=== PATIENT | female | born 1965 | race Caucasian/White ===

== ENCOUNTER 2020-11-21 23:30 | Inpatient (IN) | payer BC ==
[2020-11-22] MEDS ORDERED: ACETAMINOPHEN 500 MG TAB ONE ×2 (00:40→03:19)
[2020-11-22] MEDS ORDERED: NA CHLORIDE 0.9% 3,000 ML ONE (00:40)
[2020-11-22] MEDS ORDERED: CEFEPIME 1 GM/VIAL ONE (00:40)
[2020-11-22] MEDS ORDERED: VANCOMYCIN 1 GM/VIAL ONE (00:40)
[2020-11-22] MEDS ORDERED: NA CHLORIDE 0.9% 250 ML ONE ×2 (00:41→06:30)
[2020-11-22 00:55] LABS: Absolute Lymphocytes (CBC) 0.1 K/uL (0.7-4.9); Basophils % 0.3 % (0-1.3); Hematocrit 32.8 % (36.0-45.0); Lymphocytes % 2.8 % (15.3-44.8); MPV 7.9 fL (7.6-11.3)
[2020-11-22 00:58] LABS: Protime INR 1.14
[2020-11-22 01:06] LABS: ALT/SGPT 31 U/L (12-78); AST/SGOT 20 U/L (15-37); Albumin 3.4 g/dL (3.4-5.0); Alkaline Phosphatase 84 U/L (45-117); Amylase 38 U/L (25-115); BUN Blood Urea Nitrogen 10 mg/dL (7-18); Bicarbonate 23 mmol/L (21-32); Bilirubin Direct < 0.1 mg/dL (0-0.2); Bilirubin Total 0.2 mg/dL (0.2-1.0); Creatine Phosphokinase 47 U/L (26-192); Glucose Level 129 mg/dL (74-106); Lipase 63 U/L (73-393); Magnesium 1.9 mg/dL (1.8-2.4); NT PRO-BNP 124 pg/mL (<125); Potassium 3.8 mmol/L (3.5-5.1); Protein, Total 7.9 g/dL (6.4-8.2); Sodium Level 136 mmol/L (136-145); Troponin (Emerg Dept Use Only) < 0.02 ng/mL (0.0-0.045)
[2020-11-22] MEDS ORDERED: NA CHLORIDE 0.9% 0 ML ONE (01:12)
[2020-11-22 01:22] LABS: CKMB Creatine Kinase MB < 1.0 ng/mL (1.0-3.6)
[2020-11-22 01:52] LABS: Urine Blood Negative (Negative); Urine Glucose Negative (Negative); Urine Protein Negative (Negative); Urine Specific Gravity 1.025 (1.005-1.030)
[2020-11-22 02:52] LABS: Blood Morphology Comment NOT SEEN (NOT SEEN); Platelet Estimate ADEQ
[2020-11-22 02:55] LABS: Urine Bacteria <20 /HPF (<20); Urine RBC NONE SEEN /HPF (NONE SEEN)
--- NOTE | 2020-11-22 02:58 | EDPHYS ---
Physician Documentation [facility] Name: Jennifer Bustamante Age: 55 yrs Sex: Female : 1965 Arrival Date: 11/21/2020 Time: 23:34 Bed 19 Private MD: ED Physician Braxton Dawson HPI: 11/22 02:53 This 55 yrs old Female presents to ER via Ambulatory with complaints of ma2 Fever, Cough, Congestion. 02:53 Onset: The symptoms/episode began/occurred gradually, 1 day(s) ago. Associated signs ma2 and symptoms: Pertinent negatives: abdominal pain, sinus congestion. Severity of symptoms: At their worst the symptoms were moderate in the emergency department the symptoms are unchanged. The patient has not experienced similar symptoms in the past. Patient has breast cancer, received chemotherapy yesterday, here with cough fever sputum production for 1 day.. Historical: - Allergies: 00:44 No Known Allergies; sj1 - Home Meds: 03:55 losartan 25 mg oral tab 1 tab once daily [Active]; Vitamin D 2000 Oral daily [Active]; sj1 - PMHx: 00:44 Carcinoma of breast; Hypertensive disorder; sj1 - Immunization history:: Adult Immunizations up to date, Client reports receiving the 2nd dose of the Covid vaccine, . - Social history:: Smoking status: Patient denies any tobacco usage or history of. Patient/guardian denies using alcohol, street drugs, The patient lives with family. - Family history:: not pertinent. - Hospitalizations: : No recent hospitalization is reported. ROS: 02:53 Constitutional: Negative for fever, chills, and weight loss. ma2 02:53 All other systems are negative. Exam: 02:53 Constitutional: This is a well developed, well nourished patient who is awake, alert, ma2 and in no acute distress. ENT: Nares patent. No nasal discharge, no septal abnormalities noted. Tympanic membranes are normal and external auditory canals are clear. Oropharynx with no redness, swelling, or masses, exudates, or evidence of obstruction, uvula midline. Mucous membranes moist. Neck: Trachea midline, no thyromegaly or masses palpated, and no cervical lymphadenopathy. Supple, full range of motion without nuchal rigidity, or vertebral point tenderness. No Meningismus. Chest/axilla: Normal chest wall appearance and motion. Nontender with no deformity. No lesions are appreciated. Cardiovascular: Tachycardia , regular rhythm with a normal S1 and S2. No gallops, murmurs, or rubs. Normal PMI, no JVD. No pulse deficits. Respiratory: Lungs have equal breath sounds bilaterally, clear to auscultation and percussion. No rales, rhonchi or wheezes noted. No increased work of breathing, no retractions or nasal flaring. Abdomen/GI: Soft, non-tender, with normal bowel sounds. No distension or tympany. No guarding or rebound. No evidence of tenderness throughout. Back: No spinal tenderness. No costovertebral tenderness. Full range of motion. Skin: Warm, dry with normal turgor. Normal color with no rashes, no lesions, and no evidence of cellulitis. MS/ Extremity: Pulses equal, no cyanosis. Neurovascular intact. Full, normal range of motion. Neuro: Awake and alert, GCS 15, oriented to person, place, time, and situation. Cranial nerves II-XII grossly intact. Motor strength 5/5 in all extremities. Sensory grossly intact. Cerebellar exam normal. Normal gait. Vital Signs: 11/21 23:44 BP 101 / 85; Pulse 133; Resp 21; Pulse Ox 96% ; Weight 124.5 kg; Height 5 ft. 4 in. bs2 (162.56 cm); Pain 0/10; 23:54 Temp 101.3(O); bs2 11/22 00:40 BP 110 / 94 LA Sitting (auto/lg); Pulse 122; Resp 20 S; Pulse Ox 100% on R/A; Pain 0/10;sj1 01:02 Temp 102(O); sj1 02:43 BP 136 / 61 LA Sitting (auto/reg); Pulse 117; Resp 22 S; Temp 102.3(O); Pulse Ox 97% on sj1 R/A; Pain 0/10; 11/21 23:44 Body Mass Index 47.11 (124.50 kg, 162.56 cm) bs2 [place] Coma Score: 00:40 Eye Response: spontaneous(4). Verbal Response: oriented(5). Motor Response: obeys sj1 commands(6). Total: 15. MDM: 11/21 23:52 Patient medically screened. ma2 11/22 02:53 Differential diagnosis: viral Infection, bacterial infection, URI, bronchitis, mn2 pneumonia UTI, gastroenteritis. 02:56 Data reviewed: vital signs, nurses notes. Counseling: I had a detailed discussion with [facility] the patient and/or guardian regarding: the historical points, exam findings, and any diagnostic results supporting the discharge/admit diagnosis, the presence of at least one elevated blood pressure reading (>120/80) during this emergency department visit, the need for further work-up and treatment in the hospital. Response to treatment: the patient's symptoms have markedly improved after treatment. 11/21 23:55 Order name: BMP [facility] 11/21 23:55 Order name: Blood Culture Adult (2) [facility] 11/21 23:55 Order name: CBC with Diff [facility] 11/21 23:55 Order name: CPK [facility] 11/21 23:55 Order name: Ckmb [facility] 11/21 23:55 Order name: Hepatic Function; Complete Time: 02:03 [facility] 11/21 23:55 Order name: Lipase; Complete Time: 02:03 [facility] 11/21 23:55 Order name: Magnesium; Complete Time: 02:03 [facility] 11/21 23:55 Order name: NT PRO-BNP; Complete Time: 02:03 [facility] 11/21 23:55 Order name: PT-INR; Complete Time: 02:03 [facility] 11/21 23:55 Order name: Ptt, Activated; Complete Time: 02:03 [facility] 11/21 23:55 Order name: Troponin (emerg Dept Use Only); Complete Time: 02:03 [facility] 11/21 23:55 Order name: Amylase, Serum; Complete Time: 02:03 [facility] 11/21 23:55 Order name: Lactate; Complete Time: 02:03 [facility] 11/21 23:55 Order name: Procalcitonin; Complete Time: 02:03 [facility] 11/21 23:55 Order name: Urine Microscopic Only [facility] 11/21 23:55 Order name: Flu; Complete Time: 02:30 mn2 11/21 23:55 Order name: Strep; Complete Time: 02:30 mn2 11/21 23:56 Order name: Basic Metabolic Panel; Complete Time: 02:03 EDMS 11/21 23:56 Order name: Blood Culture [facility] 11/21 23:56 Order name: CBC with Automated Diff EDMS 11/21 23:56 Order name: Creatine Phosphokinase; Complete Time: 02:03 EDMS 11/21 23:56 Order name: CKMB Creatine Kinase MB; Complete Time: 02:03 EDMS 11/22 00:43 Order name: SARS-COV-2 RT PCR; Complete Time: 02:03 EDMS 11/22 00:59 Order name: Manual Differential EDMS 11/22 01:51 Order name: Urine Dipstick-Ancillary; Complete Time: 02:03 EDMS 11/21 23:55 Order name: XRAY CXR (1 view) ma2 11/21 23:55 Order name: EKG; Complete Time: 23:56 ma2 11/21 23:55 Order name: Cardiac monitoring; Complete Time: 00:36 ma2 11/21 23:55 Order name: EKG - Nurse/Tech; Complete Time: 00:19 ma2 11/21 23:55 Order name: IV Saline Lock; Complete Time: 00:19 ma2 11/21 23:55 Order name: Labs collected and sent; Complete Time: 00:19 ma2 11/21 23:55 Order name: O2 Per Protocol; Complete Time: 00:19 ma2 11/21 23:55 Order name: O2 Sat Monitoring; Complete Time: 00:19 ma2 11/21 23:55 Order name: IV Saline Lock - Large Bore; Complete Time: 00:18 ma2 11/21 23:55 Order name: Urine Dipstick-Ancillary (obtain specimen); Complete Time: 01:51 ma2 11/21 23:55 Order name: Droplet/Contact Precautions; Complete Time: 00:34 ma2 11/22 02:19 Order name: Throat Culture EDMS Administered Medications: 00:34 Drug: Cefepime 1 grams Route: IVPB; Rate: 200 ml/hr; Infused Over: 30 mins; Site: right sj1 antecubital; 01:27 Follow up: IV Status: Completed infusion sj1 00:37 Not Given (Patient Refused): Acetaminophen 1000 mg PO once sj1 00:37 Drug: NS 0.9% (30 ml/kg) 30 ml/kg Route: IV; Rate: bolus; Site: left antecubital; sj1 00:50 Drug: vancoMYCIN 1 grams Route: IVPB; Infused Over: 2 hrs; Site: left antecubital; sj1 03:11 Follow up: IV Status: Completed infusion sj1 01:02 Drug: NS 0.9% (30 ml/kg) 30 ml/kg Route: IV; Rate: bolus; Site: left antecubital; 1 01:11 Drug: NS 0.9% (30 ml/kg) 30 ml/kg Route: IV; Rate: bolus; Site: right antecubital; sj1 02:55 Drug: Acetaminophen 1000 mg Route: PO; sj1 Disposition Summary: 11/22/20 02:57 Hospitalization Ordered Hospitalization Status: Inpatient Admission ma2 Provider: Braxton Oglesby Location: Telemetry/MedSurg (Inpatient) ma2 Condition: Stable ma2 Problem: new ma2 Symptoms: are unchanged ma2 Bed/Room Type: Standard [facility] Room Assignment: 210(11/22/20 04:25) wg Diagnosis - Severe sepsis without septic shock ma2 - Other pneumonia, unspecified organism ma2 - Tachycardia, unspecified ma2 Forms: - Medication Reconciliation Form ma2 - SBAR form ma2 Critical care time excluding procedures: 02:56 Critical care time: Bedside Care: 25 minutes, Consultation: 10 minutes, Family ma2 Intervention: 5 minutes. Total time: 40 minutes Signatures: Dispatcher [employer] EDMS Braxton Dawson MD MD ma2 Isabel Lawrence RN RN bs2 Karthik Petersen RN Sharlene Low RN RN sj1 Corrections: (The following items were deleted from the chart) 11/21 23:58 23:56 D-Dimer ordered. EDMS EDMS 11/22 00:43 11/21 23:56 CORONAVIRUS+MR.LAB.BRZ ordered. EDMS EDMS 11/22 01:28 11/21 23:55 Accucheck ordered. ma2 1 11/22 04:25 02:57 ma2 wg
--- NOTE | 2020-11-22 02:58 | ER ---
Nurse's Notes [facility] Name: Jennifer Bustamante Age: 55 yrs Sex: Female : 1965 Arrival Date: 11/21/2020 Time: 23:34 Bed 19 Private MD: Diagnosis: Severe sepsis without septic shock;Other pneumonia, unspecified organism;Tachycardia, unspecified Presentation: 11/21 23:44 Chief complaint: Patient states: fever, chemo pt treatment today, congestion, cough. bs2 Coronavirus screen: congestion, cough unrelated to allergies, fever. Ebola Screen: No symptoms or risks identified at this time. Initial Sepsis Screen: Does the patient meet any 2 criteria? HR > 90 bpm. No. Patient's initial sepsis screen is negative. Does the patient have a suspected source of infection? No. Patient's initial sepsis screen is negative. Risk Assessment: Do you want to hurt yourself or someone else? Patient reports no desire to harm self or others. Onset of symptoms was November 21, 2020. 23:44 Method Of Arrival: Ambulatory bs2 23:44 Acuity: MARNIE 2 bb Triage Assessment: 23:53 General: Appears in no apparent distress. uncomfortable, obese, well developed, well bs2 nourished, Behavior is calm, cooperative, appropriate for age. Pain: Denies pain. Respiratory:. Historical: - Allergies: 11/22 00:44 No Known Allergies; sj1 - Home Meds: 03:55 losartan 25 mg oral tab 1 tab once daily [Active]; Vitamin D 2000 Oral daily [Active]; sj1 - PMHx: 00:44 Carcinoma of breast; Hypertensive disorder; sj1 - Immunization history:: Adult Immunizations up to date, Client reports receiving the 2nd dose of the Covid vaccine, . - Social history:: Smoking status: Patient denies any tobacco usage or history of. Patient/guardian denies using alcohol, street drugs, The patient lives with family. - Family history:: not pertinent. - Hospitalizations: : No recent hospitalization is reported. Screenin:40 Abuse screen: Denies threats or abuse. Denies injuries from another. Nutritional sj1 screening: No deficits noted. Tuberculosis screening: No symptoms or risk factors identified. Fall Risk None identified. Assessment: 00:37 General: Appears in no apparent distress. Behavior is calm, cooperative, appropriate sj1 for age, Reports fever for feeling ill for. Pain: Denies pain. Neuro: No deficits noted. Cardiovascular: No deficits noted. tachy 128. Rhythm is sinus tachycardia Chest pain is denied. Respiratory: Reports cough that is productive, Airway is patent Trachea midline Respiratory effort is even, unlabored, Respiratory pattern is regular, symmetrical, Sputum is white. GI: Reports nausea. : No deficits noted. EENT: No deficits noted. Derm: No deficits noted. Musculoskeletal: No deficits noted. 01:26 Reassessment: aware of temp 102. No additional orders given. sj1 Vital Signs: 11/21 23:44 BP 101 / 85; Pulse 133; Resp 21; Pulse Ox 96% ; Weight 124.5 kg; Height 5 ft. 4 in. bs2 (162.56 cm); Pain 0/10; 23:54 Temp 101.3(O); bs2 11/22 00:40 BP 110 / 94 LA Sitting (auto/lg); Pulse 122; Resp 20 S; Pulse Ox 100% on R/A; Pain 0/10;sj1 01:02 Temp 102(O); sj1 02:43 BP 136 / 61 LA Sitting (auto/reg); Pulse 117; Resp 22 S; Temp 102.3(O); Pulse Ox 97% on sj1 R/A; Pain 0/10; 11/21 23:44 Body Mass Index 47.11 (124.50 kg, 162.56 cm) bs2 Vitals: 00:40 Cardiac Rhythm Assessment Regular Sinus tach. sj1 [place] Coma Score: 00:40 Eye Response: spontaneous(4). Verbal Response: oriented(5). Motor Response: obeys sj1 commands(6). Total: 15. ED Course: 11/21 23:34 Patient arrived in ED. ja2 23:48 Triage completed. bs2 23:52 Braxton Dawson MD is Attending Physician. ma2 23:53 Arm band placed on right wrist. bs2 11/22 00:18 Creatine Phosphokinase Sent. sj1 00:18 CKMB Creatine Kinase MB Sent. sj1 00:18 CBC with Automated Diff Sent. sj1 00:18 Blood Culture Sent. sj1 00:18 Basic Metabolic Panel Sent. sj1 00:36 XRAY CXR (1 view) Sent. sj1 00:36 Ckmb Sent. sj1 00:36 CPK Sent. sj1 00:36 CBC with Diff Sent. sj1 00:36 Blood Culture Adult (2) Sent. sj1 00:36 BMP Sent. sj1 00:37 XRAY CXR (1 view) In Process Unspecified. EDMS 00:40 Patient has correct armband on for positive identification. Placed in gown. Bed in low sj1 position. Call light in reach. Side rails up X 1. 00:40 No provider procedures requiring assistance completed. Inserted saline lock: 20 gauge sj1 in right antecubital area, using aseptic technique. Blood collected. 00:43 Inserted saline lock: 20 gauge in left antecubital area, using aseptic technique. Blood sj1 collected. 01:10 Manual Differential Sent. sj1 01:10 SARS-COV-2 RT PCR Sent. sj1 01:10 CBC with Automated Diff Sent. sj1 01:10 Flu Sent. sj1 01:11 RSV Sent. sj1 01:11 Strep Sent. sj1 02:57 Braxton Oglesby MD is Hospitalizing Provider. ma2 Administered Medications: 00:34 Drug: Cefepime 1 grams Route: IVPB; Rate: 200 ml/hr; Infused Over: 30 mins; Site: right sj1 antecubital; 01:27 Follow up: IV Status: Completed infusion sj1 00:37 Not Given (Patient Refused): Acetaminophen 1000 mg PO once sj1 00:37 Drug: NS 0.9% (30 ml/kg) 30 ml/kg Route: IV; Rate: bolus; Site: left antecubital; sj1 00:50 Drug: vancoMYCIN 1 grams Route: IVPB; Infused Over: 2 hrs; Site: left antecubital; sj1 03:11 Follow up: IV Status: Completed infusion sj1 01:02 Drug: NS 0.9% (30 ml/kg) 30 ml/kg Route: IV; Rate: bolus; Site: left antecubital; sj1 01:11 Drug: NS 0.9% (30 ml/kg) 30 ml/kg Route: IV; Rate: bolus; Site: right antecubital; sj1 02:55 Drug: Acetaminophen 1000 mg Route: PO; sj1 Outcome: 02:57 Decision to Hospitalize by Provider. ma2 05:07 Patient left the ED. sj1 Signatures: Dispatcher [employer] EDMS Nadine Kendrick RN RN bb Braxton Dawson MD MD ma2 Isabel Lawrence RN RN bs2 Edie Mcclain Sade, RN RN sj1 Corrections: (The following items were deleted from the chart) 00:43 00:18 CORONAVIRUS+ drawn and sent. [facility] EDWA 02:38 11/21 23:44 Acuity: MARNIE 3 bs2 kate
--- NOTE | 2020-11-22 03:52 | P.HP ---
Certification for Inpatient Patient admitted to: Inpatient With expected LOS: >2 Midnights Patient will require the following post-hospital care: None Practitioner: I am a practitioner with admitting privileges, knowledge of patient current condition, hospital course, and medical plan of care. Services: Services provided to patient in accordance with Admission requirements found in Title 42 Section 412.3 of the Code of Federal Regulations Patient History Date of Service: 11/22/20 Reason for admission: pneumonia History of Present Illness: Ms. Bustamante is a 55 yo F with breast cancer currently receiving chemotherapy at [facility] and HTN who presents with one day of cough productive of clear sputum, congestion, and fever. She called [facility] and they told her to go to the hospital. Denies SOB, wheezing, vomiting, and diarrhea. She has received the covid vaccine. - Past Medical/Surgical History Diabetic: No -: breast cancer -: HTN -: 2 c sections -: tonsillectomy -: cataract surgery -: port placement Psychosocial/ Personal History: - Family History Mother -: Lung disease - Social History Smoking Status: Never smoker Alcohol use: No CD- Drugs: No Caffeine use: Yes Place of Residence: Home Review of Systems General: Fever, Chills, Sweats, Malaise Respiratory: Cough Physical Examination - Physical Exam General: Alert, In no apparent distress HEENT: Atraumatic, PERRLA, Mucous membr. moist/pink, EOMI, Sclerae nonicteric Neck: Supple, 2+ carotid pulse no bruit, No LAD, Without JVD or thyroid abnormality Respiratory: Normal air movement, Rhonchi/gurgles Cardiovascular: Regular rate/rhythm, Normal S1 S2 Gastrointestinal: Normal bowel sounds, No tenderness Musculoskeletal: No tenderness Integumentary: No rashes Neurological: Normal speech, Normal strength at 5/5 x4 extr, Normal tone, Normal affect Lymphatics: No axilla or inguinal lymphadenopathy - Studies Laboratory Data (last 24 hrs) 11/22/20 00:00: PT 13.1 H, INR 1.14, APTT 30.8 11/22/20 00:00: WBC 3.20 L, Hgb 11.0 L, Hct 32.8 L, Plt Count 154 11/22/20 00:00: Sodium 136, Potassium 3.8, BUN 10, Creatinine 0.72, Glucose 129 H, Magnesium 1.9, Total Bilirubin 0.2, AST 20, ALT 31, Alkaline Phosphatase 84, Amylase 38, Lipase 63 L Microbiology Data (last 24 hrs): 11/21/20 23:59 Nasopharnyx Influenza Type A Antigen Screen - Final 11/21/20 23:59 Nasopharnyx Influenza Type B Antigen Screen - Final 11/21/20 23:55 Throat Group A Streptococcus Rapid Screen - Final Assessment and Plan - Problems (Diagnosis) (1) Breast cancer Current Visit: Yes Status: Acute Qualifiers: Breast location: unspecified site of breast Estrogen receptor status: unspecified Patient sex: female Laterality: unspecified laterality Qualified Code(s): C50.919 - Malignant neoplasm of unspecified site of unspecified female breast (2) HTN (hypertension) Current Visit: Yes Status: Chronic Qualifiers: Hypertension type: primary hypertension Qualified Code(s): I10 - Essential (primary) hypertension (3) Pneumonia Current Visit: Yes Status: Acute Qualifiers: Pneumonia type: due to unspecified organism Laterality: unspecified laterality Lung location: unspecified part of lung Qualified Code(s): J18.9 - Pneumonia, unspecified organism - Plan continue IV antibiotics and IV Fluids sputum and blood cultures pending antipyretics as needed reconcile and continue home medications DVT ppx Discharge Plan: Home Plan to discharge in: 48 Hours - Advance Directives Does patient have a Living Will: No Does patient have a Durable POA for Healthcare: No - Code Status/Comfort Care Code Status Assessed: Yes (full code ) Critical Care: No Time Spent Managing Pts Care (In Minutes): 70
[2020-11-22] MEDS ORDERED: ONDANSETRON 4 MG/2 ML VIAL IV PRN (03:58)
[2020-11-22] MEDS ORDERED: Pharmacy Consult 1 EA XX PRN (03:58)
[2020-11-22] MEDS ORDERED: IBUPROFEN 400 MG TAB PO PRN (03:58)
[2020-11-22] MEDS ORDERED: ACETAMINOPHEN 500 MG TAB PO PRN (03:58)
[2020-11-22] MEDS: NA CHLORIDE 0.9% 1,000 ML IV SCH ×2 (04:00→16:16)
[2020-11-22] MEDS ORDERED: NA CHLORIDE 0.9% 1,000 ML ONE (04:32)
[2020-11-22] MEDS ORDERED: VANCOMYCIN/NS 1 gm 1 GM/250 ML BAG IV ONE (05:00)
[2020-11-22 06:02] VITALS: BMI 47.7
[2020-11-22] MEDS: ENOXAPARIN 40 MG/0.4 ML SQ SCH (08:28)
--- NOTE | 2020-11-22 08:33 | RAD REPORT ---
EXAM DESCRIPTION: RAD - Chest Single View - 11/22/2020 12:37 am CLINICAL HISTORY: CONGESTION Chest pain. COMPARISON: THORAX W CONTRAST dated 03/30/2014Chest Pa And Lat (2 Views) dated 01/06/2017 FINDINGS: Portable technique limits examination quality. Interstitial markings are mildly prominent. The heart is normal in size. Left-sided port catheter has tip in the SVC. IMPRESSION: A mild bronchitis versus viral pneumonitis pattern is suspected.
[2020-11-22] MEDS ORDERED: POTASSIUM CL SA 10 MEQ TAB PO ONE (09:00)
[2020-11-22] MEDS ORDERED: CEFEPIME 1 GM/VIAL IV SCH (13:00)
[2020-11-22] MEDS: CEFEPIME 1 GM in NA CHLORIDE 0.9% 100 ML IV SCH ×2 (13:19→20:42)
--- NOTE | 2020-11-22 15:32 | P.PN ---
Date of Service: 11/22/20 Patient seen and examined. Patient complaining of chills. She denies shortness of breath. Plan: Continue current antibiotics. Follow blood culture. Patient is tolerating room air. Monitor blood chemistry and CBC.
[2020-11-22] MEDS ORDERED: VANCOMYCIN 2 GM in NA CHLORIDE 0.9% 500 ML IVPB SCH (21:00)
[2020-11-23] MEDS: NA CHLORIDE 0.9% 1,000 ML IV SCH ×3 (05:01→10:00)
[2020-11-23 05:37] LABS: Absolute Lymphocytes (CBC) 0.2 K/uL (0.7-4.9); Basophils % 0.7 % (0-1.3); Hematocrit 25.3 % (36.0-45.0); Lymphocytes % 9.9 % (15.3-44.8); MPV 7.3 fL (7.6-11.3); RBC Red Blood Cell Count 2.88 M/uL (3.86-4.86)
[2020-11-23 05:56] LABS: ALT/SGPT 26 U/L (12-78); AST/SGOT 21 U/L (15-37); Albumin 2.5 g/dL (3.4-5.0); Alkaline Phosphatase 59 U/L (45-117); BUN Blood Urea Nitrogen 6 mg/dL (7-18); Bicarbonate 27 mmol/L (21-32); Bilirubin Total 0.3 mg/dL (0.2-1.0); Glucose Level 99 mg/dL (74-106); Magnesium 2.1 mg/dL (1.8-2.4); Phosphorus 1.8 mg/dL (2.5-4.9); Potassium 3.3 mmol/L (3.5-5.1); Protein, Total 6.1 g/dL (6.4-8.2); Sodium Level 141 mmol/L (136-145)
[2020-11-23 06:57] LABS: Platelet Estimate ADEQ; White Blood Cell Scan OK (OK)
[2020-11-23 06:58] LABS: Blood Morphology Comment NOT SEEN (NOT SEEN)
[2020-11-23 08:33] VITALS: O2SAT 98
[2020-11-23] MEDS: CEFEPIME 1 GM in NA CHLORIDE 0.9% 100 ML IV SCH (08:56)
[2020-11-23] MEDS: ENOXAPARIN 40 MG/0.4 ML SQ SCH (08:58)
[2020-11-23] MEDS: POTASS/SODIUM PHOSPHATE 1 PKT POWD.PACK PO SCH ×3 (08:58→12:07)
[2020-11-23] MEDS ORDERED: POTASSIUM 25 MEQ EFFERV TAB PO ONE (09:00)
[2020-11-23 09:47] VITALS: BP 128/65; TEMP 96.8
--- NOTE | 2020-11-23 11:00 | P.DS ---
Admission Date: 11/22/20 Discharge Date: 11/23/20 Disposition: ROUTINE DISCHARGE Discharge Condition: FAIR Reason for Admission: pneumonia - Problems (1) Breast cancer Status: Acute Qualifiers: Breast location: unspecified site of breast Estrogen receptor status: unspecified Patient sex: female Laterality: unspecified laterality Qualified Code(s): C50.919 - Malignant neoplasm of unspecified site of unspecified female breast (2) Pneumonia Status: Acute Qualifiers: Pneumonia type: due to unspecified organism Laterality: unspecified laterality Lung location: unspecified part of lung Qualified Code(s): J18.9 - Pneumonia, unspecified organism (3) HTN (hypertension) Status: Chronic Qualifiers: Hypertension type: primary hypertension Qualified Code(s): I10 - Essential (primary) hypertension Brief History of Present Illness: 55 yo woamn with breast cancer currently receiving chemotherapy at [facility] and HTN who presented with cough productive of clear sputum, congestion, and fever. Chest x-ray done in the emergency department demonstrated bronchitis versus pneumonitis. Patient met criteria for sepsis with fever and tachycardia. She was started on antibiotics and admitted for further management. Hospital Course: Patient admitted to the medical floor and treated with broad-spectrum antibiotics-cefepime and vancomycin. Blood culture yielded no growth. She did not require oxygen therapy. Patient looks sick but his clinical condition improved rapidly. She is up and ambulating today. She states her appetite has returned. She ate well this morning and currently feels much better. Patient is discharged with oral Augmentin to continue treatment for pneumonia. Vital Signs/Physical Exam: Temp Pulse Resp BP Pulse Ox 96.8 F 85 18 128/65 97 11/23/20 08:00 11/23/20 08:00 11/23/20 08:00 11/23/20 08:00 11/23/20 08:00 General: Alert, In no apparent distress, Oriented x3 HEENT: Mucous membr. moist/pink Neck: Supple, JVD not distended Respiratory: Clear to auscultation bilaterally, Normal air movement Cardiovascular: No edema, Regular rate/rhythm, Normal S1 S2 Gastrointestinal: Soft and benign, Non-distended, No tenderness Musculoskeletal: No swelling Integumentary: No rashes Neurological: Normal strength at 5/5 x4 extr Laboratory Data at Discharge: WBC 2.00 K/uL (4.3-10.9) L D 11/23/20 05:00 Hgb 8.8 g/dL (12.0-15.0) L 11/23/20 05:00 Hct 25.3 % (36.0-45.0) L D 11/23/20 05:00 Plt Count 104 K/uL (152-406) L D 11/23/20 05:00 PT 13.1 SECONDS (9.5-12.5) H 11/22/20 00:00 INR 1.14 11/22/20 00:00 APTT 30.8 SECONDS (24.3-36.9) 11/22/20 00:00 Sodium 141 mmol/L (136-145) 11/23/20 05:00 Potassium 3.3 mmol/L (3.5-5.1) L 11/23/20 05:00 BUN 6 mg/dL (7-18) L 11/23/20 05:00 Creatinine 0.42 mg/dL (0.55-1.3) L 11/23/20 05:00 Glucose 99 mg/dL (74-106) 11/23/20 05:00 Phosphorus 1.8 mg/dL (2.5-4.9) L 11/23/20 05:00 Magnesium 2.1 mg/dL (1.8-2.4) 11/23/20 05:00 Total Bilirubin 0.3 mg/dL (0.2-1.0) 11/23/20 05:00 AST 21 U/L (15-37) 11/23/20 05:00 ALT 26 U/L (12-78) 11/23/20 05:00 Alkaline Phosphatase 59 U/L (45-117) 11/23/20 05:00 Amylase 38 U/L (25-115) 11/22/20 00:00 Lipase 63 U/L (73-393) L 11/22/20 00:00 Home Medications: Cholecalciferol (Vitamin D3) [Vitamin D 1000 Iu Tab*] 2,000 unit PO DAILY 11/22/20 Losartan Potassium 25 mg PO DAILY 11/22/20 Amox/Clavulanate [Augmentin 875-125 Tab] 1 each PO BID #14 tab 11/23/20 New Medications: Amox/Clavulanate [Augmentin 875-125 Tab] 1 each PO BID #14 tab Diet: AHA Activity: Ad arnoldo Followup: Elda Perez MD [Primary Care Provider] - 1-2 Weeks Time spent managing pt's care (in minutes): 35
== END 2020-11-23 12:32 | disposition home or self-care (01) | DRG 195 ==
LOC: ER 23:30 → ERHOLD 11-22 03:22 → 2ND 11-22 04:26
PROVIDERS: ADMIT Internal Medicine; ATTEND Internal Medicine
DX: J18.9 Pneumonia, unspecified organism (principal); C50.919 Malignant neoplasm of unspecified site of unspecified female breast; I10 Essential (primary) hypertension; Z20.822 Contact with and (suspected) exposure to COVID-19
CPT/HCPCS: 36415; 71045; 80048; 80053; 80076; 81003; 81015; 82150; 82550; 82553; 83605; 83690; 83735; 83880; 84100; 84145; 84484; 85025; 85610; 85730; 87040; 87070; 87081; 87804; 93005; 94760; 99284; J0692; J1650; J3370; J7030; J7040; J7050; U0003